=== PATIENT | male | born 1970 | race Caucasian/White ===

== ENCOUNTER 2021-08-03 08:45 | Outpatient (CLI) | payer BC | END 2021-08-03 08:46 | disposition home or self-care (01) | LOC: PET 08:45 | PROVIDERS: ATTEND Internal Medicine | DX: R91.1 Solitary pulmonary nodule (principal) | CPT/HCPCS: 78815; A9552 ==

== ENCOUNTER 2021-08-24 13:49 | Outpatient (CLI) | payer BC | END 2021-08-24 13:50 | disposition home or self-care (01) | LOC: LABBT 13:49 | PROVIDERS: ATTEND Internal Medicine | DX: Z01.812 Encounter for preprocedural laboratory examination (principal); Z20.822 Contact with and (suspected) exposure to COVID-19 | CPT/HCPCS: 87811 ==

== ENCOUNTER 2021-08-29 05:43 | Day surgery (SDC) | payer BC ==
[2021-08-24 11:43] VITALS: BMI 24.4
[2021-08-29] MEDS ORDERED: Midazolam HCl 2 mg/2 ml Vial ONE (06:56)
[2021-08-29] MEDS ORDERED: fentaNYL Citrate/PF 100 MCG/2 ML SYRINGE ONE (07:01)
[2021-08-29] MEDS ORDERED: Lidocaine 1% PF 5 ML VIAL ONE (07:22)
[2021-08-29] MEDS ORDERED: PROPOFOL 200 MG/20 ML VIAL ONE (07:22)
[2021-08-29] MEDS ORDERED: Rocuronium Bromide 10 MG/ML (10ML VIAL) ONE (07:22)
[2021-08-29] MEDS ORDERED: Ondansetron PF 4 MG/2 ML Vial ONE (07:22)
[2021-08-29] MEDS ORDERED: SUGAMMADEX SODIUM 200 MG/2 ML VIAL ONE (07:27)
== END 2021-08-29 11:34 | disposition home or self-care (01) ==
LOC: SDC 05:43
PROVIDERS: ATTEND Internal Medicine
PROC: 07B74ZX Excision of Thorax Lymphatic, Percutaneous Endoscopic Approach, Diagnostic (ICD-10-PCS; principal; 2021-08-29)
DX: C96.9 Malignant neoplasm of lymphoid, hematopoietic and related tissue, unspecified (principal); F17.210 Nicotine dependence, cigarettes, uncomplicated; Z79.899 Other long term (current) drug therapy
CPT/HCPCS: 88173; 88305; 88341; 88342; J2250; J2405; J2704; J7620

== ENCOUNTER 2021-09-27 08:30 | Outpatient (CLI) | payer BC | END 2021-09-27 08:31 | disposition home or self-care (01) | LOC: SCSMRI 08:30 | PROVIDERS: ATTEND Internal Medicine Hematology & Oncology | DX: C34.90 Malignant neoplasm of unspecified part of unspecified bronchus or lung (principal); G93.9 Disorder of brain, unspecified | CPT/HCPCS: 70553; 82565 ==

== ENCOUNTER 2021-12-06 12:44 | Outpatient (CLI) | payer BC ==
[~2021-12-06 12:44] MED LIST: Magnevist 469MG/ML 20 ML VIAL ONE
== END 2021-12-06 12:45 | disposition home or self-care (01) ==
LOC: MRI 12:44
PROVIDERS: ATTEND Radiology Radiation Oncology
DX: C79.31 Secondary malignant neoplasm of brain (principal); C80.1 Malignant (primary) neoplasm, unspecified
CPT/HCPCS: 70553; A9579

== ENCOUNTER 2022-01-22 08:45 | Outpatient (CLI) | payer BC | END 2022-01-22 08:46 | disposition home or self-care (01) | LOC: PET 08:45 | PROVIDERS: ATTEND Internal Medicine Hematology & Oncology | DX: C34.11 Malignant neoplasm of upper lobe, right bronchus or lung (principal); R91.1 Solitary pulmonary nodule | CPT/HCPCS: 78815; A9552 ==

== ENCOUNTER 2022-03-13 10:04 | Outpatient (CLI) | payer BC | END 2022-03-13 10:05 | disposition home or self-care (01) | LOC: MRI 10:04 | PROVIDERS: ATTEND Radiology Radiation Oncology | DX: C79.31 Secondary malignant neoplasm of brain (principal); G93.9 Disorder of brain, unspecified | CPT/HCPCS: 70553 ==

== ENCOUNTER 2022-06-18 11:45 | Outpatient (CLI) | payer BC | END 2022-06-18 11:46 | disposition home or self-care (01) | LOC: PET 11:45 | PROVIDERS: ATTEND Internal Medicine Hematology & Oncology | DX: C34.11 Malignant neoplasm of upper lobe, right bronchus or lung (principal); R91.1 Solitary pulmonary nodule; R59.0 Localized enlarged lymph nodes | CPT/HCPCS: 78815; A9552 ==

== ENCOUNTER 2022-06-21 13:17 | Outpatient (CLI) | payer BC | END 2022-06-21 13:18 | disposition home or self-care (01) | LOC: MRI 13:17 → SCSMRI 13:18 | PROVIDERS: ATTEND Radiology Radiation Oncology | DX: C79.31 Secondary malignant neoplasm of brain (principal); G93.89 Other specified disorders of brain | CPT/HCPCS: 70553 ==

== ENCOUNTER 2022-09-20 10:15 | Outpatient (CLI) | payer BC | END 2022-09-20 10:16 | disposition home or self-care (01) | LOC: PET 10:15 | PROVIDERS: ATTEND Internal Medicine Hematology & Oncology | DX: C34.11 Malignant neoplasm of upper lobe, right bronchus or lung (principal); J16.8 Pneumonia due to other specified infectious organisms | CPT/HCPCS: 78815; A9552 ==

== ENCOUNTER 2022-09-26 09:29 | Outpatient (CLI) | payer BC | END 2022-09-26 09:30 | disposition home or self-care (01) | LOC: MRI 09:29 | PROVIDERS: ATTEND Radiology Radiation Oncology | DX: C79.31 Secondary malignant neoplasm of brain (principal) | CPT/HCPCS: 70553 ==

== ENCOUNTER 2022-11-01 14:36 | Outpatient (CLI) | payer BC | END 2022-11-01 14:37 | disposition home or self-care (01) | LOC: BICCT 14:36 | PROVIDERS: ATTEND Internal Medicine Hematology & Oncology | DX: C34.11 Malignant neoplasm of upper lobe, right bronchus or lung (principal); J18.9 Pneumonia, unspecified organism; R91.8 Other nonspecific abnormal finding of lung field | CPT/HCPCS: 71250 ==

== ENCOUNTER 2022-12-04 08:45 | Outpatient (CLI) | payer BC | END 2022-12-04 08:46 | disposition home or self-care (01) | LOC: PET 08:45 | PROVIDERS: ATTEND Internal Medicine Hematology & Oncology | DX: C34.11 Malignant neoplasm of upper lobe, right bronchus or lung (principal); R91.8 Other nonspecific abnormal finding of lung field | CPT/HCPCS: 78815; A9552 ==

== ENCOUNTER 2022-12-30 10:05 | Outpatient (CLI) | payer BC ==
[2022-12-30] MEDS ORDERED: Magnevist 469MG/ML 20 ML VIAL ONE (15:07)
== END 2022-12-30 10:06 | disposition home or self-care (01) ==
LOC: MRI 10:05
PROVIDERS: ATTEND Radiology Radiation Oncology
DX: C79.31 Secondary malignant neoplasm of brain (principal); C34.90 Malignant neoplasm of unspecified part of unspecified bronchus or lung; G93.9 Disorder of brain, unspecified; G93.6 Cerebral edema
CPT/HCPCS: 70553

== ENCOUNTER 2023-03-12 08:45 | Outpatient (CLI) | payer BC | END 2023-03-12 08:46 | LOC: PET 08:45 | PROVIDERS: ATTEND Internal Medicine Hematology & Oncology | DX: C34.11 Malignant neoplasm of upper lobe, right bronchus or lung (principal) | CPT/HCPCS: 78815; A9552 ==

== ENCOUNTER 2023-04-01 09:28 | Outpatient (CLI) | payer BC ==
[2023-04-01] MEDS ORDERED: Magnevist 469MG/ML 20 ML VIAL ONE (10:45)
== END 2023-04-01 09:29 | disposition home or self-care (01) ==
LOC: MRI 09:28
PROVIDERS: ATTEND Radiology Radiation Oncology
DX: C79.31 Secondary malignant neoplasm of brain (principal); R90.0 Intracranial space-occupying lesion found on diagnostic imaging of central nervous system
CPT/HCPCS: 70553

== ENCOUNTER 2023-09-16 09:23 | Outpatient (CLI) | payer BC | END 2023-09-16 09:24 | disposition home or self-care (01) | LOC: MRI 09:23 | PROVIDERS: ATTEND Radiology Radiation Oncology | DX: C79.31 Secondary malignant neoplasm of brain (principal) | CPT/HCPCS: 70553 ==

== ENCOUNTER → 2023-12-01 | Day surgery (SDC) | payer BC | LOC: MRI 11:01 → LABBT 11:02 | PROVIDERS: ATTEND Family Medicine | DX: C79.31 Secondary malignant neoplasm of brain (principal); C34.11 Malignant neoplasm of upper lobe, right bronchus or lung | CPT/HCPCS: 70553; 76376 ==

== ENCOUNTER 2024-02-04 10:15 | Outpatient (CLI) | payer BC | END 2024-02-04 10:16 | disposition home or self-care (01) | LOC: PET 10:15 | PROVIDERS: ATTEND Internal Medicine Hematology & Oncology | DX: C34.11 Malignant neoplasm of upper lobe, right bronchus or lung (principal); R91.1 Solitary pulmonary nodule; E27.9 Disorder of adrenal gland, unspecified | CPT/HCPCS: 78815; A9552 ==

== ENCOUNTER 2024-03-04 13:28 | Outpatient (CLI) | payer BC | END 2024-03-04 13:29 | disposition home or self-care (01) | LOC: MRI 13:28 | PROVIDERS: ATTEND Radiology Radiation Oncology | DX: C79.31 Secondary malignant neoplasm of brain (principal); R90.82 White matter disease, unspecified | CPT/HCPCS: 70553; 76376 ==

== ENCOUNTER 2024-03-25 07:29 | Emergency (ER) | payer BC | END 2024-03-25 09:29 | disposition home or self-care (01) | LOC: ERS 07:29 | DX: S01.01XA Laceration without foreign body of scalp, initial encounter (principal); F17.210 Nicotine dependence, cigarettes, uncomplicated; W19.XXXA Unspecified fall, initial encounter | CPT/HCPCS: 70450 ==